=== PATIENT | female | born 1980 | race Caucasian/White ===

== ENCOUNTER 2018-04-04 11:16 | Observation (INO) ==
[2018-04-04] MEDS ORDERED: Ondansetron ODT 4 MG TAB.RAPDIS SL PRN (12:14)
[2018-04-04] MEDS ORDERED: Acetaminophen 325 MG TABLET PO ONE (12:14)
[2018-04-04 12:40] LABS: Basophils % 0.1 %; Eosinophils # 0.1 K/mcL (0.0-0.6); Eosinophils % 0.7 %; Hematocrit 38.3 % (35.3-44.9); Immature Granulocytes % 0.4 % (0-4); Lymphocytes # 1.5 K/mcL (0.6-4.6); Lymphocytes % 20.2 %; Mean Corpuscular HGB Conc 33.9 g/dL (31.6-35.5); Mean Corpuscular Hemoglobin 32.2 pg (28.0-33.3); Mean Corpuscular Volume 94.8 fL (83.0-100.0); Mean Platelet Volume 10.4 fL (9.4-12.4); Monocytes # 0.4 K/mcL (0.0-1.3); Monocytes % 5.3 %; Neutrophils # 5.4 K/mcL (1.6-8.9); Platelet Count 229 K/mcL (140-400); Red Blood Count 4.04 M/mcL (3.82-4.97); Red Cell Distribution Width 13.4 % (11.5-14.5); Segmented Neutrophils % 73.3 %
[2018-04-04 12:54] LABS: Bilirubin,Urine Negative (Negative); Blood,Urine Negative (Negative); Color,Urine Yellow (Yellow); Glucose,Urine (UA) Normal (Normal); Ketones,Urine Negative (Negative); Leukocyte Esterase,Urine Small (Negative); Nitrite,Urine Negative (Negative); PH,Urine 5.5 pH Units (5.0-8.0); Protein,Urine Negative (Neg-Trace); Specific Gravity,Urine 1.017 (1.010-1.025); Urobilinogen,Urine Normal (Normal)
[2018-04-04 12:55] LABS: Clarity,Urine Hazy (Clear)
[2018-04-04 13:08] LABS: Alanine Aminotransferase 7 Units/L (7-52); Aspartate Amino Transferase 12 Units/L (13-39); BUN/Creatinine Ratio 12 (6-26); Blood Urea Nitrogen 8 mg/dL (6-20); Lactate Dehydrogenase 150 Units/L (140-271); Uric Acid 5.5 mg/dL (2.3-7.6); eGFR For Non-African Americans > 60 (> 60)
[2018-04-04 13:09] LABS: Bacteria,Urine Moderate per hpf (None-Few); Squamous Epithelial Cell,Urine Few per lpf (None-Few)
[2018-04-04 13:11] LABS: Amphetamine Screen,Urine Negative ng/mL (Cutoff=1000); Barbiturate Screen,Urine Negative ng/mL (Cutoff=200); Benzodiazepines Screen,Urine Negative ng/mL (Cutoff=200); Cannabinoid Screen,Urine Negative ng/mL (Cutoff = 50); Cocaine Screen,Urine Negative ng/mL (Cutoff= 300); Opiate Screen,Urine Negative ng/mL (Cutoff=300); Phencyclidine Screen,Urine Negative ng/mL (Cutoff=25)
[2018-04-04 13:13] LABS: Protein/Creatinine Ratio,Urine 0.11 mg/mg (0.00-0.20)
[2018-04-04] MEDS ORDERED: SUMAtriptan succinate 50 MG TABLET PO ONE (13:15)
--- NOTE | 2018-04-04 13:22 | OB/GYN Progress Note ---
Date of Encounter: 04/04/18 Time of Encounter: 13:16 - Assessment and Plan (1) 32 weeks gestation of Current Visit: Yes Status: Acute (2) Gastroenteritis Current Visit: Yes Status: Acute Suspect viral illness given ill contacts. Will treat symptomatically. Pt given tylenol, imitrex, and immodium in triage. Discharge home with precautions. Rx: zofran Subjective - Subjective Interval history: 38 year-old presenting at 32w4d with c/o headache, nausea, and diarrhea. She has had an intermittent headache for the last 4 days with nausea and vomiting yesterday and diarrhea today. She states tylenol has not really been helping her headache. She also notes that her children have been ill with similar complaints. No leaking, bleeding or cramping. Good FM. Antepartum ROS: movement normal, no loss of fluid, no vaginal bleeding, no contractions Objective - Exam FHR: category 1 FHR comments: 135 BPM, reactive NST Auscultation: bilateral: normal Abdomen: Present: soft, gravid Uterus: Present: normal. Absent: tenderness - Labs Labs: Abnormal lab results AST 12 Units/L (13-39) L 04/04/18 12:23 Urine Clarity Hazy (Clear) A 04/04/18 12:03 Ur Leukocyte Esterase Small (Negative) H 04/04/18 12:03 Urine Microscopic WBC 5-15 per hpf (0-3) H 04/04/18 12:03 Urine Bacteria Moderate per hpf (None-Few) H 04/04/18 12:03 Ur Culture Indicated? YES (NO) A 04/04/18 12:03 Urine Total Protein 18 mg/dL (1-14) H 04/04/18 12:03
== END 2018-04-04 13:56 | disposition home or self-care (01) ==
LOC: 1NENULAB
PROVIDERS: ADMIT Obstetrics & Gynecology; ATTEND Obstetrics & Gynecology

== ENCOUNTER → 2018-04-30 18:17 | Observation (INO) ==
[2018-04-30 17:36] LABS: Bilirubin,Urine Negative (Negative); Blood,Urine Negative (Negative); Clarity,Urine Clear (Clear); Color,Urine Yellow (Yellow); Glucose,Urine (UA) Normal (Normal); Ketones,Urine Negative (Negative); Leukocyte Esterase,Urine Negative (Negative); Nitrite,Urine Negative (Negative); Protein,Urine Negative (Neg-Trace); Specific Gravity,Urine 1.008 (1.010-1.025); Urobilinogen,Urine Normal (Normal)
[2018-04-30 17:39] LABS: Amphetamine Screen,Urine Negative ng/mL (Cutoff=1000); Barbiturate Screen,Urine Negative ng/mL (Cutoff=200); Benzodiazepines Screen,Urine Negative ng/mL (Cutoff=200); Cannabinoid Screen,Urine Negative ng/mL (Cutoff = 50); Cocaine Screen,Urine Negative ng/mL (Cutoff= 300); Opiate Screen,Urine Negative ng/mL (Cutoff=300); Phencyclidine Screen,Urine Negative ng/mL (Cutoff=25)
--- NOTE | 2018-04-30 18:09 | OB/GYN Progress Note ---
Date of Encounter: 04/30/18 Time of Encounter: 18:07 - Assessment and Plan (1) 36 weeks gestation of Current Visit: Yes Status: Acute (2) Uterine contractions Current Visit: Yes Status: Acute Rare contractions seen on monitor, no change in serial cervical exams, discharged home with labor and when to return to triage precautions. Patient verbalizes understanding and in agreement with plan Subjective - Subjective Interval history: 36+2 weeks gestation presents to triage with complaints of back pain and contractions. Patient states she has had back pain with a constant feeling throughout the day's couple hours feels contractions presenting at staining in her abdomen. Reports good movement, denies any vaginal bleeding or leaking of fluid Antepartum ROS: movement normal, contractions, no loss of fluid, no vaginal bleeding Objective - Vital Signs Vital Signs: Intake and Output 04/30/18 04/30/18 04/30/18 07:59 15:59 23:59 Other: Weight 133.7 kg Patient Weight 04/30/18 23:59 Weight 133.7 kg - Exam FHR: auscultation normal FHR comments: Baseline 130 Abdomen: Present: soft, gravid Cervical dilation: 1/long - Labs Labs: Abnormal lab results Ur Specific [place] 1.008 (1.010-1.025) L 04/30/18 17:20
== END | disposition home or self-care (01) ==
LOC: 1NENULAB
PROVIDERS: ADMIT Advanced Practice Midwife; ATTEND Advanced Practice Midwife

== ENCOUNTER → 2018-05-18 22:19 | Observation (INO) ==
[2018-05-18 20:42] LABS: Amphetamine Screen,Urine Negative ng/mL (Cutoff=1000); Barbiturate Screen,Urine Negative ng/mL (Cutoff=200); Benzodiazepines Screen,Urine Negative ng/mL (Cutoff=200); Cannabinoid Screen,Urine Negative ng/mL (Cutoff = 50); Cocaine Screen,Urine Negative ng/mL (Cutoff= 300); Opiate Screen,Urine Negative ng/mL (Cutoff=300); Phencyclidine Screen,Urine Negative ng/mL (Cutoff=25)
--- NOTE | 2018-05-18 22:00 | Discharge Summary ---
Date of Encounter: 05/18/18 Time of Encounter: 22:00 - Discharge Diagnosis (1) 38 weeks gestation of Priority: Primary Status: Acute Comments: Return on Monday for scheduled repeat Labor parameters discussed Discharge home (2) Abdominal cramping affecting Priority: Secondary Status: Acute Comments: No cervical change after 2 hours of monitoring Labor parameters discussed and patient verbalizes understanding of when to return - Discharge Medications Home Medications: Tablet 1 tab PO DAILY 04/04/18 [History] Allergies/Adverse Reactions: 3 Allergy/AdvReac Type Severity Reaction Status Date / Time codeine Allergy Nausea Verified 04/04/18 11:59 povidone-iodine Allergy Hives Verified 04/04/18 11:59 [From Betadine] soap [From Betadine] Allergy Hives Verified 04/04/18 11:59 Sulfa (Sulfonamide Allergy Nausea Verified 04/04/18 11:59 Antibiotics) Data Procedures and tests throughout hospitalization: Laboratory Tests 05/18/18 20:03 Urine Opiates Screen Negative Ur Barbiturates Screen Negative Ur Phencyclidine Scrn Negative Ur Amphetamines Screen Negative U Benzodiazepines Scrn Negative Urine Cocaine Screen Negative U Marijuana (THC) Screen Negative Ur Drug Screen Interp See Below Labs on day of discharge: Labs from last 24 hours 05/18/18 20:03 Urine Opiates Screen Negative Ur Barbiturates Screen Negative Ur Phencyclidine Scrn Negative Ur Amphetamines Screen Negative U Benzodiazepines Scrn Negative Urine Cocaine Screen Negative U Marijuana (THC) Screen Negative Ur Drug Screen Interp See Below Date of admission: 05/18/18 19:32 Discharging clinician: Lesvia Chu Anticipated date of discharge: 05/18/18 - Patient Status Disposition: Home, Self-Care Condition: Good Functional capacity at discharge: independent ambulation Overall status at discharge: patient is progressing back to baseline - Discharge Instructions Follow Up With: sOwald Walker MD [Partnered Physician] - - Diet and Activity Activity: increase activity as tolerated Diet: regular diet 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 She reports she has had contractions every 5 minutes for the last couple of hours before arrival. She was monitored for 2 hours in labor and delivery and made no cervical change. We discussed conditions in a row she should return to labor and delivery prior to her scheduled on Monday. She verbalized understanding. She left the unit in stable condition. Time Attestation: Total time spent providing and/or coordinating discharge services: Time Spent: Less than 30 minutes Exam - Constitutional General appearance IM: A&O X 3 - Respiratory Respiratory exam: Present: CTAB - Cardiovascular Cardiovascular exam IM: Present: RRR, +S1, +S2 - GI/Abdominal GI/Abdominal exam IM: normal bowel sounds, no peritoneal signs - Rectal Rectal exam: deferred - Uterine Tone: Firm - Extremities Exam Extremities exam IM: Present: normal capillary refill, normal inspection, radial pulses palpable and symmetrical - Neurological Exam Neurological exam: alert, CN II-XII intact, normal gait, oriented X3, reflexes normal, no focal deficits, strengths equal and symetr throughout
== END | disposition home or self-care (01) ==
LOC: 1NENULAB
PROVIDERS: ADMIT Advanced Practice Midwife; ATTEND Advanced Practice Midwife

== ENCOUNTER 2018-05-22 07:34 | Inpatient (IN) ==
[2018-05-22] MEDS ORDERED: Famotidine 20 MG/2 ML VIAL IVP ONE (07:46)
[2018-05-22] MEDS ORDERED: Ringers Solution, Lactated 1,000 ML IVC ONE (07:46)
[2018-05-22] MEDS ORDERED: CeFAZolin Syr 3,000MG/30 ML 3,000 MG/30 ML SYRINGE IVPB ONE (07:46)
[2018-05-22] MEDS ORDERED: Metoclopramide 10 MG/2 ML VIAL IVP ONE (07:46)
[2018-05-22] MEDS ORDERED: Ringers Solution, Lactated 1,000 ML IVC SCH (08:00)
[2018-05-22 08:13] LABS: Basophils % 0.5 %; Eosinophils % 0.3 %; Hematocrit 37.7 % (35.3-44.9); Hemoglobin 12.8 g/dL (11.5-15.4); Immature Granulocytes % 0.3 % (0-4); Lymphocytes # 1.7 K/mcL (0.6-4.6); Lymphocytes % 19.2 %; Mean Corpuscular Hemoglobin 31.6 pg (28.0-33.3); Mean Corpuscular Volume 93.1 fL (83.0-100.0); Mean Platelet Volume 10.5 fL (9.4-12.4); Monocytes # 0.5 K/mcL (0.0-1.3); Monocytes % 5.8 %; Neutrophils # 6.4 K/mcL (1.6-8.9); Platelet Count 261 K/mcL (140-400); Red Blood Count 4.05 M/mcL (3.82-4.97); Segmented Neutrophils % 73.9 %
--- NOTE | 2018-05-22 08:31 | OB/GYN History & Physical ---
Date of Encounter: 05/22/18 Time of Encounter: 08:23 Assessment and Plan (1) 39 weeks gestation of Current visit: Yes Status: Acute Pt at 39 weeks gestation presents for repeat . Questions answered and consent obtained. History of Present Illness Chief complaint: Repeat at term HPI: Ms. Gore is a 38 year old female female at 39 + weeks gestation presents for repeat . Has h/o prior vaginal delivery, followed by later primary for non reassuring well being. otherwise complicated by AMA, she has had normal level 2 u/s. She has had antepartum testing. On arrival she reports + GFM, no vb or lof. Past Med Surg Social Fam HX - Past Medical History Source: patient, old records reviewed Medical history: no medical history Psychiatric history: no psych history - Past Surgical History Surgical History: , cholecystectomy - Social History Smoking Status: Former smoker Smokeless Tobacco Status: No Alcohol use: none Drug use: none - Family History Mother Name: Gloria Living Status: Still Living Hx Family Cardiac Disorders: No Hx Family Respiratory Disorders: No Hx Family Cancer: No Hx Family GI Disorders: No Hx Family Endocrine Disorder: No Hx Family Neuromuscular Disorders: No Hx Family Neurologic Disorders: No Hx Family HEENT Disorders: No Hx Family Autoimmune Disorders: No Obstetrical History - Pregnancies : 3 Para: 2 Medications and Allergies Tablet 1 tab PO DAILY 04/04/18 [History] 3 Allergy/AdvReac Type Severity Reaction Status Date / Time codeine Allergy Nausea Verified 04/04/18 11:59 povidone-iodine Allergy Hives Verified 04/04/18 11:59 [From Betadine] soap [From Betadine] Allergy Hives Verified 04/04/18 11:59 Sulfa (Sulfonamide Allergy Nausea Verified 04/04/18 11:59 Antibiotics) Exam - Constitutional Constitutional: well developed, well nourished, no acute distress - HEENT HEENT: EOMI, PERRL - Neck Neck exam: full ROM - Lungs Respiratory exam: CTAB - Cardiovascular Cardiovascular exam: RRR - Abdomen Abdomen: Present: gravid, non tender - Extremities Extremities exam: full ROM Deep Tendon Reflex Grade: 2+ Normal - Cervix Dilation: 2 - Uterus Uterus exam: Present: enlarged Results Result Diagrams: 05/22/18 07:55 All other labs normal. - VTE Reasons for not Prescribing Prophylaxis: Treatment not Indicated - Low risk for VTE
[2018-05-22 08:39] LABS: Amphetamine Screen,Urine Negative ng/mL (Cutoff=1000); Barbiturate Screen,Urine Negative ng/mL (Cutoff=200); Benzodiazepines Screen,Urine Negative ng/mL (Cutoff=200); Cannabinoid Screen,Urine Negative ng/mL (Cutoff = 50); Cocaine Screen,Urine Negative ng/mL (Cutoff= 300); Opiate Screen,Urine Negative ng/mL (Cutoff=300); Phencyclidine Screen,Urine Negative ng/mL (Cutoff=25)
--- NOTE | 2018-05-22 08:59 | Anesthesia Evaluation PreOp ---
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 Other Medical History: Denies Any Significant HX : Yes Test: Positive Alcohol Use: none Drug use: none Medications and Allergies Tablet 1 tab PO DAILY 04/04/18 [History] 3 Allergy/AdvReac Type Severity Reaction Status Date / Time codeine Allergy Nausea Verified 04/04/18 11:59 povidone-iodine Allergy Hives Verified 04/04/18 11:59 [From Betadine] soap [From Betadine] Allergy Hives Verified 04/04/18 11:59 Sulfa (Sulfonamide Allergy Nausea Verified 04/04/18 11:59 Antibiotics) - Meds/Allergy Pre-op Review Medications Reviewed: Yes Allergies Reviewed: Yes Beta Blockers on Current Med List: No Anesthesia Results - Labs 05/22/18 07:55 Anesthesia Exam Height: 65 Weight: 288 NPO (# of Hours): mn Pain Scale: 0 - HEENT Pupil (Motor): Pupils equal Mallampati: II Teeth: Normal Oral Opening: Greater than 3 - SWITCHBOARD MANAGER LOC: Oriented SWITCHBOARD MANAGER Motor: Normal RUE, Normal LUE, Normal RLE, Normal LLE, Normal Face SWITCHBOARD MANAGER Sensory: Normal: RUE, LUE, RLE, LLE, Face - Cardiac Rhythm: Regular Murmur: None JVD: No Carotid Bruit: No - Pulmonary Breath Sounds: bilateral Clear Respiratory Effort: Symmetrical Anesthesia Assess/Plan ASA Score: 3 Modified [place] Scale for Level of Consciousness: Cooperative, oriented, and tranquil Anesthetic Plan: Regional Autologous Blood: No Monitoring Plan: Standard Monitors
[2018-05-22] MEDS ORDERED: Naloxone 0.4 MG/ML INJ IVP PRN ×2 (09:09→11:50)
[2018-05-22] MEDS ORDERED: *HR* Morphine Sulfate/PF 10 MG/10 ML AMPUL ONE (09:26)
[2018-05-22] MEDS ORDERED: EPHEDrine 50 MG/ML VIAL ONE ×2 (09:27→11:03)
[2018-05-22] MEDS ORDERED: *HR* FentaNYL (PF) 100 MCG/2 ML VIAL ONE ×2 (09:27→11:03)
[2018-05-22] MEDS ORDERED: *HR* Phenylephrine 10 MG/ML VIAL ONE (09:28)
[2018-05-22] MEDS ORDERED: *HR* Oxytocin 10 UNIT/ML VIAL IM ONE (09:30)
[2018-05-22] MEDS ORDERED: Ringers Solution, Lactated 1,000 ML ONE (09:30)
[2018-05-22] MEDS ORDERED: *HR* Ropivacaine/PF 0.2% 20 ML VIAL ONE (11:02)
[2018-05-22] MEDS ORDERED: Lidocaine -MPF 1% 5 ML AMPUL ONE (11:02)
[2018-05-22] MEDS ORDERED: Bupivacaine-MPF 0.25% 10 ML VIAL ONE (11:02)
--- NOTE | 2018-05-22 11:20 | Anesthesia Procedures ---
Date of Encounter: 05/22/18 Time of Encounter: 10:03 Procedures: Anesthesia - Epidural/Spinal Patient ID/Chart reviewed: Yes Patient examined: Yes OB Eval: : 3 OB Eval: Hx Para: 2 OB Eval: Dilated at (cm): 2 OB Eval: Contractions: Non-stressed pattern Consent Obtained: Yes Site Prep: Aseptic Technique, Sterile prep and drape, 0.5% Chlorhexidine/Alcohol Local Anesthetic: Lidocaine 1% (3) Amount of Local Anesthetic used: 3 Interspace Used: L4-L5 Loss of Resistance (MISHA): No Blood: No CSF: Yes Paresthesia: Yes Spinal Needle Gauge: 22 Vitals + FHT's: successful SAB after two attempts with moderate difficulty. Clear CSF noted, immediate caudal response. VSS FHTS throughout. see nursing record spinal : bupivicaine 0.5% 2ml, fentanyl 10mcg, duramorph 0.3mg with epi wash
[2018-05-22] MEDS ORDERED: *HR* Promethazine 25 MG/ML VIAL IVP PRN (11:22)
[2018-05-22] MEDS ORDERED: *HR* Meperidine 25 MG/ML SYRINGE IVP PRN (11:22)
[2018-05-22] MEDS ORDERED: Ondansetron 4 MG/2 ML VIAL IVP PRN ×2 (11:22→11:50)
[2018-05-22] MEDS ORDERED: Ondansetron 4 MG/2 ML VIAL IVP ONE (11:22)
[2018-05-22] MEDS ORDERED: Ibuprofen 400 MG TABLET PO PRN (11:22)
[2018-05-22] MEDS ORDERED: Acetaminophen IV 1,000 MG/100 ML INFUS..BTL IVPB ONE (11:22)
[2018-05-22] MEDS ORDERED: Ketorolac 30 MG/ML VIAL ONE (11:32)
[2018-05-22] MEDS ORDERED: Dexamethasone 4 MG/ML VIAL ONE (11:32)
[2018-05-22] MEDS ORDERED: Sennosides 8.6 MG TABLET PO PRN (11:50)
[2018-05-22] MEDS ORDERED: Rho Immune Globulin 1,500 UNIT SYRINGE IM ONE (11:50)
[2018-05-22] MEDS ORDERED: *HR* OxyCODONE/APAP 5/325 TABLET PO PRN (11:50)
[2018-05-22] MEDS ORDERED: Metoclopramide 10 MG/2 ML VIAL IVP PRN (11:50)
[2018-05-22] MEDS ORDERED: Simethicone 80 MG TAB.CHEW PO PRN (11:50)
--- NOTE | 2018-05-22 11:57 | OB/GYN Procedure Note ---
Section - Date of procedure: 05/22/18 Preop diagnosis: desires repeat , desires sterilization Post-op diagnosis: other (Breech) Procedure: section, repeat low transverse, bilateral tubal ligation Surgeon: Oswald Wall Blood Loss: [phone] Was there an medical claims assistant present: No Anesthesia Type: Spinal section complications: none Disposition: PACU Specimens: Placenta, Right tube segment, Left tube segment - Infant (s) A Infant Delivery Date: 05/22/18 Delivery Time: 11:06 Presentation: breech Gender: Male Viability: Viable Pounds: 7 Ounces: 6 at 1 minute: 7 at 5 minutes: 8 Shoulder Dystocia: not encountered Specimens collected: cord blood Cord: nuchal cord, 3 umbilical vessels - Narrative Narrative: Patient's 38-year-old 3 para 2 female 39 weeks gestation presents for repeat section. She is aware operative risks and signed appropriate consent. Description procedure: Patient was taken operating room where spinal anesthesia was administered. She is prepped draped in usual sterile fashion bladder was drained with Zeng catheter. Scalpel was used to make Pfannenstiel skin incision which was sharply taken down the rectus fascia. Fascia was incised midline fascial incision was extended bilaterally. Peritoneum was entered bluntly and peritoneal incision was extended. Bladder blade was placed and there were adhesions noted between the bladder and the lower uterus these were sharply taken down. Bladder blade was again placed. Scalpel was used to make a low transverse uterine incision. Membranes were ruptured of moderate meconium -stained fluid. Infant was noted to be double footling breech infant was delivered from breech presentation without difficulty. There was a loose nuchal cord was easily reduced. weight was found to be 7 lbs. 6 oz. Apgars of 7 at 1 minute and 8 at 5 minutes. Placenta was delivered manually without difficulty. Uterine cavity was massaged free of all residual tissue. Uterus closed the Vicryl running lock stitch second imbricating layer was placed for the first obtain hemostasis. Approximate 4 cm segment of each fallopian tube was ligated with plain catgut suture 3 cm segment of each tube was resected ends were hemostatic. Fascia was closed with oh loop PDS. Irrigation was performed hemostasis was ensured skin edges reapproximated with 4 -0 Vicryl. All sponge and instruments counts are correct patient was taken recovery in good condition.
[2018-05-22] MEDS ORDERED: Oxytocin 20 units/ LR 1000 mL 20 UNIT/1,000 ML BAG IVC SCH ×2 (12:00)
[2018-05-22] MEDS ORDERED: Ringers Solution, Lactated 500 ML IVC ONE ×2 (17:49→23:46)
[2018-05-22] MEDS: Ibuprofen 600 MG TABLET PO PRN (17:59)
[2018-05-23 00:14] LABS: Hematocrit 33.8 % (35.3-44.9); Hemoglobin 11.3 g/dL (11.5-15.4)
[2018-05-23 05:05] LABS: Basophils % 0.2 %; Hematocrit 30.7 % (35.3-44.9); Hemoglobin 10.2 g/dL (11.5-15.4); Immature Granulocytes % 0.4 % (0-4); Lymphocytes # 1.3 K/mcL (0.6-4.6); Lymphocytes % 11.2 %; Mean Corpuscular HGB Conc 33.2 g/dL (31.6-35.5); Mean Corpuscular Hemoglobin 31.4 pg (28.0-33.3); Mean Corpuscular Volume 94.5 fL (83.0-100.0); Mean Platelet Volume 10.6 fL (9.4-12.4); Monocytes # 0.8 K/mcL (0.0-1.3); Monocytes % 6.5 %; Neutrophils # 9.6 K/mcL (1.6-8.9); Platelet Count 225 K/mcL (140-400); Red Blood Count 3.25 M/mcL (3.82-4.97); Red Cell Distribution Width 13.2 % (11.5-14.5); Segmented Neutrophils % 81.7 %
--- NOTE | 2018-05-23 08:55 | OB/GYN Progress Note ---
Date of Encounter: 05/23/18 Time of Encounter: 08:50 - Assessment and Plan (1) Status post delivery Current Visit: Yes Status: Acute Continue routine care. Remove vázquez catheter and ambulate. Anticipate discharge tomorrow. (2) Breast feeding status of mother Current Visit: Yes Status: Acute well. support as needed. (3) anemia Current Visit: Yes Status: Acute Continue iron daily as ordered. Subjective - Subjective Principal diagnosis: Status post section Interval history: Sun is post op day 1. Her pain is well controlled with just Motrin at this time. She did have Duramorph in her spinal so patient is counseled to begin taking ordered Percocet if/when her pain increases today. She had minimal urine output throughout the night, but at time of assessment, approximately 400 mL urine noted in vázquez bag. Will discontinue vázquez today and begin ambulation. Patient is nursing her with minimal difficulty. Patient reports: appetite normal, pain well controlled [place]: doing well, nursing well Objective - Vital Signs Latest vital signs: Vital Signs Temp Pulse Resp BP Pulse Ox 05/23/18 08:10 97.9 F 72 18 101/68 100 05/23/18 03:45 98.2 F 60 16 102/63 99 05/22/18 23:43 97.9 F 76 16 130/76 98 05/22/18 19:50 97.5 F L 70 16 125/73 98 05/22/18 17:30 97.5 F L 76 16 133/84 96 05/22/18 16:30 97.8 F 76 16 137/81 96 05/22/18 15:30 97.7 F 74 16 114/73 96 05/22/18 15:10 97.6 F 75 16 133/85 97 05/22/18 14:28 97.5 F L 69 16 138/62 96 Intake and Output 05/22/18 05/23/18 05/23/18 23:59 07:59 15:59 Intake Total 500 / 500 Output Total 250 / 250 100 / 100 Balance 250 / 250 -100 / -100 Intake: Oral 500 / 500 Output: Urine 50 / 50 Catheter 250 / 250 50 / 50 Other: Weight 128.911 kg Patient Weight 05/23/18 23:59 Weight 128.911 kg - Exam Lungs: bilateral: normal Chest: Normal S1, Normal S2 Extremities: Present: normal, edema Abdomen: Present: normal appearance, soft Incision: Present: dressed Uterus: Present: normal Fundal Height: 0 (u/u) - Labs Labs: Laboratory Results - last 24 hr 05/23/18 05/23/18 00:05 04:43 WBC 11.8 H RBC 3.25 L Hgb 11.3 L D 10.2 L Hct 33.8 L 30.7 L MCV 94.5 MCH 31.4 MCHC 33.2 RDW 13.2 Plt Count 225 MPV 10.6 Immature Gran % 0.4 Seg Neutrophils % 81.7 Lymphocytes % 11.2 Monocytes % 6.5 Eosinophils % 0.0 Basophils % 0.2 Neutrophils # 9.6 H Lymphocytes # 1.3 Monocytes # 0.8 Eosinophils # 0.0 Basophils # 0.0
[2018-05-23] MEDS ORDERED: Prenatal Vit/FA 1 EACH TABLET PO SCH (09:00)
[2018-05-23] MEDS: Ibuprofen 600 MG TABLET PO PRN ×2 (10:15→20:22)
[2018-05-23 20:41] VITALS: BP 102/66
[2018-05-24] MEDS ORDERED: *HR* OxyCODONE/APAP 5/325 TABLET PO ONE (12:29)
[2018-05-24] MEDS ORDERED: Prenatal Vit/FA 1 EACH TABLET PO ONE (12:29)
== END 2018-05-24 12:30 | disposition home or self-care (01) | DRG 540 ==
LOC: 1NENULAB 07:34 → 1NENUOBS 14:32
PROVIDERS: ADMIT Obstetrics & Gynecology; ATTEND Obstetrics & Gynecology